=== PATIENT | female | born 2000 | race Caucasian/White ===

== ENCOUNTER 2021-05-25 22:46 | Emergency (ER) | payer OTHER, SELFPAY ==
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
== END 2021-05-25 22:47 | disposition expired ==
PROVIDERS: Emergency Provider Emergency Medicine
DX: T14.90XA Injury, unspecified, initial encounter (principal); I46.8 Cardiac arrest due to other underlying condition; V47.6XXA Car passenger injured in collision with fixed or stationary object in traffic accident, initial encounter
CPT/HCPCS: 31500; 92950; 99285; J0171; J7030; J7120